=== PATIENT | female | born 1990 | race African-American/Black ===

== ENCOUNTER 2019-03-14 22:20 | Inpatient (IN) | payer OTHER ==
[2019-03-14 22:59] VITALS: BMI 27.3
--- NOTE | 2019-03-15 00:12 | HP ---
CIWA Score Nausea/Vomitin-No Nausea/No Vomiting Muscle Tremors: 4-Moderate,w/Arms Extend Anxiety: 3 Agitation: 1-Slight > Activity Paroxysmal Sweats: 3 (Increased facial moisture) Orientation: 3-Disoriented Date>2 days Tacttile Disturbances: 0-None Auditory Disturbances: 0-None Visual Disturbances: 0-None Headache: 0-None Present CIWA-Ar Total Score: 14 - Admission Criteria OASAS Guidelines: Admission for Medically Managed Detox: Requires at least one of the followin. CIWA greater than 12 2. Seizures within the past 24 hours 3. Delirium tremens within the past 24 hours 4. Hallucinations within the past 24 hours 5. Acute intervention needed for co occurring medical disorder 6. Acute intervention needed for co occurring psychiatric disorder 7. Severe withdrawal that cannot be handled at a lower level of care (continued vomiting, continued diarrhea, abnormal vital signs) requiring intravenous medication and/or fluids 8. Patient presents the following: CIWA greater than 12 Admission Criteria Met: Admission criteria met Admission ROS [facility] Chief Complaint: I'm sick and tired from alcohol and crack. Allergies/Adverse Reactions: Allergies Allergy/AdvReac Type Severity Reaction Status Date / Time No Known Allergies Allergy Verified 03/14/19 22:47 History of Present Illness: This is the first [facility] visit for this 29 yo who presents w/ alcohol withdrawal and poly substance use disorder. UTox: AZALIA/THC HCG: Neg AISSATOU: 0.0 Alcohol use began at age 13. States drinks 1/2 vodka daily since age 13. Crack/cocaine at age 16. Daily. Marijuana use began at age 13. Nicotine use began at age 13. Smokes 1/2 PPD. Longest length of sobriety 1 week. PMHx: Hx seizures - on Keppra - last took yesterday. Disoriented: States it's February 2019. Knows president and knows is in [place]. MHHx: Denies depression. Denies thoughts of harming self or others. Patient admits has gotten prescriptions in past for Suboxone. Denies heroin, Suboxone or opioid use. Patient Name: Bev Cast Date: 1990 Address: [address] [place] [address] Sex: Female Rx Written Rx Dispensed Drug Quantity Days Supply Prescriber Name 01/02/2019 01/02/2019 buprenorphine-naloxone 8-2 mg sl film 30 10 Bhaskar Mcfarlane MD Patient Name: Bev Cast Date: 1990 Address: [address] [place] [address] Sex: Female Rx Written Rx Dispensed Drug Quantity Days Supply Prescriber Name 08/09/2018 08/09/2018 chlordiazepoxide 10 mg capsule 6 6 Stephanie Kendall Patient Name: Bev Cast Date: 1990 Address: [address] [address] Sex: Female Rx Written Rx Dispensed Drug Quantity Days Supply Prescriber Name 06/29/2018 07/01/2018 suboxone 8 mg-2 mg sl film 30 10 Ольга Stuart MD 06/30/2018 07/01/2018 chlordiazepoxide 10 mg capsule 8 3 Ольга Stuart MD 06/30/2018 06/30/2018 chlordiazepoxide 10 mg capsule 20 7 Ольга Stuart MD Exam Limitations: No Limitations - Ebola screening Have you traveled outside of the country in the last 21 days: No (N) Have you had contact with anyone from an Ebola affected area: No Have you been sick,other than usual withdrawal symptoms: No Do you have a fever: No - Review of Systems Constitutional: Chills EENT: reports: No Symptoms Reported Respiratory: reports: No Symptoms reported Cardiac: reports: No Symptoms Reported GI: reports: No Symptoms Reported : reports: No Symptoms Reported Musculoskeletal: reports: No Symptoms Reported Integumentary: reports: No Symptoms Reported Neuro: reports: Headache, Tremors Endocrine: reports: No Symptoms Reported Hematology: reports: No Symptoms Reported Psychiatric: reports: Agitated, Disorientated Patient History - Reproductive History Patient is a Female of Child Bearing Age (11 -55 yrs old): Yes Last Menstrual Period: 03/08/19 Patient : No - Smoking Cessation Smoking history: Current every day smoker Have you smoked in the past 12 months: Yes Aproximately how many cigarettes per day: 10 Hx Chewing Tobacco Use: No Initiated information on smoking cessation: Yes 'Breaking Loose' booklet given: 03/15/19 - Substance & Tx. History Hx Alcohol Use: Yes Hx Substance Use: Yes Substance Use Type: Alcohol, Cocaine, Marijuana Hx Substance Use Treatment: Yes (rehab, long-term) - Substances abused Alcohol Substance route: Oral Frequency: Daily Amount used: about half of a liter of vodka/ 6 to 12 cans of beer. Age of first use: 13 Date of last use: 03/14/19 Crack Substance route: Smoking Frequency: Daily Amount used: 50 dollars Age of first use: 16 Date of last use: 03/14/19 Marijuana/Hashish Substance route: Smoking Frequency: Daily Amount used: 20 dollars Age of first use: 13 Date of last use: 03/12/19 Admission Physical Exam [facility] - Vital Signs Vital Signs: Vital Signs - 24 hr 03/14/19 03/14/19 22:46 23:13 Temperature 97.7 F 97.7 F Pulse Rate 95 H 95 H Respiratory 16 16 Rate Blood Pressure 129/79 129/79 - Physical General Appearance: Yes: Nourished, Mild Distress, Tremorous (Tremors w/ arms extended), Sweating (Increased facial moisture), Anxious HEENTM: Yes: EOMI, Hearing grossly Normal, Normal Voice, GENEVA, Pharynx Normal Respiratory: Yes: Lungs Clear, Normal Breath Sounds, No Respiratory Distress Neck: Yes: No masses,lesions,Nodules, Supple Breast: Yes: Breast Exam Deferred Cardiology: Yes: Regular Rhythm, Regular Rate, S1, S2 Abdominal: Yes: Non Tender, Flat, Soft, Increased Bowel Sounds Genitourinary: Yes: Within Normal Limits Back: Yes: Normal Inspection Musculoskeletal: Yes: full range of Motion, Gait Steady Extremities: Yes: Tremors (Tremors w/ arms extended) Neurological: Yes: 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 II-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 NML intact, Alert, Motor Strength 5/5, Disoriented (Unsure of month or day of week.) Integumentary: Yes: Normal Color, Warm Lymphatic: Yes: Within Normal Limits - Diagnostic (1) Alcohol dependence with uncomplicated withdrawal Current Visit: Yes Status: Acute (2) History of seizures Current Visit: Yes Status: Chronic (3) Cocaine dependence, uncomplicated Current Visit: Yes Status: Chronic (4) Cannabis dependence, uncomplicated Current Visit: Yes Status: Chronic (5) Nicotine dependence, uncomplicated Current Visit: Yes Status: Chronic Qualifiers: Nicotine product type: cigarettes Qualified Code(s): F17.210 - Nicotine dependence, cigarettes, uncomplicated Cleared for Admission [facility] - Detox or Rehab [facility] Level of Care: Medically Managed Detox Regimen/Protocol: Librium Claeared for Rehab Admission: No Breathalyzer - Breathalyzer Breathalyzer: 0 Urine Drug Screen - Test Device Lot number: [id number] Expiration date: 12/07/20 - Control Is test valid?: Yes - Results Drug screen NEGATIVE: No Urine drug screen results: THC-Marijuana, AZALIA-Cocaine Inpatient Rehab Admission - Rehab Decision to Admit Inpatient rehab admission?: No
[2019-03-15] MEDS ORDERED: ACETAMINOPHEN 325 MG TABLET (FP) PO PRN ×2 (00:52)
[2019-03-15] MEDS ORDERED: MELATONIN 5 MG TABLETS PO PRN (00:52)
[2019-03-15] MEDS ORDERED: chlordiazePOXIDE HCL 10 MG CAPSULE PO PRN (00:52)
[2019-03-15] MEDS ORDERED: NICOTINE POLACRILEX 2 MG GUM BUC PRN (00:52)
[2019-03-15] MEDS ORDERED: MENTHOL/PHENOL 1 EACH UD MM PRN (00:52)
[2019-03-15] MEDS ORDERED: MAGNESIUM CITRATE 300 ML BOTTLE PO PRN (00:52)
[2019-03-15] MEDS ORDERED: IBUPROFEN 400 MG TABLET (FP) PO PRN (00:52)
[2019-03-15] MEDS ORDERED: MAG HYDROX/AL HYDROX/SIMETH 30 ML UNIT-DOSE CUP PO PRN (00:52)
[2019-03-15] MEDS ORDERED: MAGNESIUM HYDROX 2400MG/30ML ORAL SUSPENSION 30 ML CUP PO PRN (00:52)
[2019-03-15] MEDS: chlordiazePOXIDE HCL 25 MG CAPSULE PO SCH ×3 (05:18→22:06)
[2019-03-15] MEDS: PRENATAL VITAMINS W/ FOLIC ACID TABLET (FP) PO SCH (10:22)
[2019-03-15] MEDS: levETIRAcetam 500 MG TABLET (FP) PO SCH ×2 (10:22→22:06)
[2019-03-15] MEDS: NICOTINE 14 MG/24 HOURS TOPICAL PATCH TD SCH (10:23)
[2019-03-15 12:06] LABS: HEMATOCRIT 35.3 % (32.4-45.2); HEMOGLOBIN 11.3 GM/dL (10.7-15.3); MCHC 32.1 g/dl (32.0-36.0); MEAN CELL VOLUME 84.3 fl (80-96); MEAN PLT VOLUME 10.3 fl (7.5-11.1); RBC 4.19 M/mm3 (3.60-5.2); RDW 14.1 % (11.6-15.6); WHITE BLOOD COUNT 15.1 K/mm3 (4.0-10.0)
[2019-03-15 12:31] LABS: ALBUMIN 3.2 g/dl (3.4-5.0); BILIRUBIN,TOTAL 0.9 mg/dL (0.2-1); BLOOD UREA NITROGEN 11.8 mg/dL (7-18); CALCIUM 8.8 mg/dL (8.5-10.1); CREATININE 0.8 mg/dL (0.55-1.3); POTASSIUM 3.6 mmol/L (3.5-5.1); TOT PROT 6.2 g/dl (6.4-8.2)
--- NOTE | 2019-03-15 14:49 | PN ---
[facility] CIWA - CIWA Score Nausea/Vomitin-No Nausea/No Vomiting Muscle Tremors: 2 Anxiety: 3 Agitation: 3 Paroxysmal Sweats: 2 Orientation: 0-Oriented Tacttile Disturbances: 1-Very Mild Itch/Numbness Auditory Disturbances: 0-None Visual Disturbances: 2-Mild Sensitivity Headache: 0-None Present CIWA-Ar Total Score: 13 S Progress Note (SOAP) Subjective: Sweating, Anxious, Tremors, Interrupted Sleep. Objective: PATIENT A & O X 3, OBSERVED AMBULATING ON UNIT UNASSISTED. IN NO ACUTE DISTRESS. PATIENT AFEBRILE. 03/15/19 14:45 Vital Signs Temperature 97.4 F L 03/15/19 13:39 Pulse Rate 89 03/15/19 13:39 Respiratory Rate 18 03/15/19 13:39 Blood Pressure 120/82 03/15/19 13:39 O2 Sat by Pulse Oximetry (%) Laboratory Tests 03/14/19 03/15/19 03/15/19 23:15 09:00 09:00 WBC 15.1 H RBC 4.19 Hgb 11.3 Hct 35.3 MCV 84.3 MCH 27.0 MCHC 32.1 RDW 14.1 Plt Count MPV 10.3 Platelet Comment Mod plt clumping Sodium 142 Potassium 3.6 Chloride 102 Carbon Dioxide 30 Anion Gap 11 BUN 11.8 Creatinine 0.8 Est GFR (CKD-EPI)AfAm 115.47 Est GFR (CKD-EPI)NonAf 99.63 Random Glucose 97 Calcium 8.8 Total Bilirubin 0.9 AST 21 ALT 25 Alkaline Phosphatase 93 Total Protein 6.2 L Albumin 3.2 L POC Urine HCG, Qual Negative HIV 1&2 Antibody Screen HIV P24 Antigen 03/15/19 09:00 WBC RBC Hgb Hct MCV MCH MCHC RDW Plt Count MPV Platelet Comment Sodium Potassium Chloride Carbon Dioxide Anion Gap BUN Creatinine Est GFR (CKD-EPI)AfAm Est GFR (CKD-EPI)NonAf Random Glucose Calcium Total Bilirubin AST ALT Alkaline Phosphatase Total Protein Albumin POC Urine HCG, Qual HIV 1&2 Antibody Screen Cancelled HIV P24 Antigen Cancelled LABS NOTED. RESULTS OF DETOX ADMISSION RPR, H.I.V. AB, TB, AND LEVETIRACETAM LEVELS PENDING. PATIENT DENIES CHEST PAIN, COUGH, SOB. PATIENT REPORT RECENT HISTORY OF A "COLD." PATIENT DENIES ANY UNUSUAL URINARY COMPLAINTS (BURNING, PAIN, FREQUENCY, URGENCY , HESITANCY, VISUALIZATION OF BLOOD IN URINE). 03/15/19 14:47 Assessment: 03/15/19 14:47 WITHDRAWAL SYMPTOMS. LEUKOCYTOSIS. Plan: CONTINUE DETOX. INCREASE DAILY PO WATER INTAKE. REPEAT CBC ORDERED FRO TOMORROW AM DUE TO ELEVATED WBC LEVEL NOTED ON DETOX ADMISSION LABORATORY ASSESSMENT. UA ORDERED TO SEE IF ANY URINARY ABNORMALITIES PRESENT.
[2019-03-15] MEDS ORDERED: THIAMINE HCL 100 MG TABLET (FP) PO SCH (22:00)
[2019-03-15] MEDS: METHOCARBAMOL 500 MG TABLET PO PRN (22:31)
[2019-03-15 22:52] LABS: PH,URINE 6.5 (5.0-8.0); URINE APPEARANCE CLEAR; URINE BILIRUBIN NEGATIVE (NEGATIVE); URINE COLOR YELLOW; URINE GLUCOSE (UA) NEGATIVE (NEGATIVE); URINE KETONE NEGATIVE (NEGATIVE); URINE LEUK ESTERASE NEGATIVE (NEGATIVE); URINE NITRITE NEGATIVE (NEGATIVE); URINE PROTEIN NEGATIVE (NEGATIVE)
[2019-03-16] MEDS ORDERED: chlordiazePOXIDE 5 MG CAPSULE PO SCH (05:00)
[2019-03-16] MEDS: METHOCARBAMOL 500 MG TABLET PO PRN (05:47)
[2019-03-16 09:04] VITALS: BP 104/66; PULSE 87; TEMP 97.2
[2019-03-16] MEDS: levETIRAcetam 500 MG TABLET (FP) PO SCH (10:31)
[2019-03-16] MEDS: PRENATAL VITAMINS W/ FOLIC ACID TABLET (FP) PO SCH (10:31)
[2019-03-16] MEDS: NICOTINE 14 MG/24 HOURS TOPICAL PATCH TD SCH (10:33)
[2019-03-16 12:02] LABS: BASO % 0.5 % (0-2.0); EOS % 1.6 % (0-4.5); HEMATOCRIT 32.6 % (32.4-45.2); HEMOGLOBIN 10.4 GM/dL (10.7-15.3); LYMPH % 20.2 % (8-40); MCH 26.7 pg (25.7-33.7); MCHC 31.7 g/dl (32.0-36.0); MEAN CELL VOLUME 84.1 fl (80-96); MEAN PLT VOLUME 9.1 fl (7.5-11.1); MONO % 8.4 % (3.8-10.2); NEUT % 69.3 % (42.8-82.8); PLATELET COUNT 280 K/MM3 (134-434); RBC 3.88 M/mm3 (3.60-5.2); WHITE BLOOD COUNT 12.7 K/mm3 (4.0-10.0)
[2019-03-16 12:53] LABS: ANISOCYTOSIS 0; MACROCYTOSIS 0; PLATELET ESTIMATE NORMAL
--- NOTE | 2019-03-16 12:56 | DS ---
[facility] Detox Discharge Summary Admission Date: 03/15/19 Discharge Date: 03/16/19 - History Present History: Alcohol Dependence, Cannabis Dependence, Cocaine Dependence Additional Comments: PATIENT REPORTS THAT SHE HAS PERSONAL MATTERS TO ATTEND TO AND THAT SHE DOES NOT WISH TO REMAIN TO COMPLETE DETOX REGIMEN. RISKS OF LEAVING DETOX UNIT AGAINST MEDICAL ADVICE AND PRIOR TO COMPLETION OF DETOX REGIMEN EXPLAINED TO PATIENT. PATIENT ADVISED TO TRY TO WAIT FOR RESULTS OF REPEAT CBC DRAWN EARLIER IN AM (PATIENT HAD ELEVATED WBC LEVEL YESTERDAY - SEE C.I.W.A. / S.O.A.P. NOTE FOR 03/15/2019). HOWEVER, PATIENT DECLINED TO DO SO AND ELECTED TO LEAVE DETOX UNIT IMMEDIATELY. RESULT OF REPEAT CBC LATER NOTED TO SHOW WBC LEVEL (12.7) THAT WAS REDUCED IN COMPARISON TO ADMISSION CBC LEVEL (15.1). HOWEVER, PATIENT LEFT DETOX UNIT AGAINST MEDICAL ADVICE PRIOR TO TIME IN WHICH RESULTS OF REPEAT CBC WERE AVAILABLE. PATIENT WAS ADVISED TO FOLLOW-UP WITH SENIOR INTERACTIVE DEVELOPER FOR FURTHER MEDICAL EVALUATION FOR ELEVATED WBC LEVEL NOTED ON DETOX ADMISSION LABORATORY ASSESSMENT. RESULTS OF UA ALSO NOTED (NO SIGNIFICANT ABNORMALITIES NOTED). PATIENT ALSO ADVISED TO GO IMMEDIATELY TO NEAREST ER SHOULD ANY INTOLERABLE WITHDRAWAL / DETOX SYMPTOMS DEVELOP AT ANY TIME. PATIENT VERBALIZED UNDERSTANDING OF ALL INFORMATION / RECOMMENDATIONS PRESENTED TO HER PRIOR TO DEPARTURE FROM DETOX UNIT. COPIES OF RESULTS OF ALL LABS DRAWN WHILE AT TIME OF ADMISSION TO DETOX UNIT GIVEN TO PATIENT AT TIME IN WHICH SHE LEFT DETOX UNIT. Pertinent Past History: History Of Seizures, Nicotine Dependence, Leukocytosis. - Physical Exam Results Vital Signs: Vital Signs Temperature 97.2 F L 03/16/19 09:04 Pulse Rate 87 03/16/19 09:04 Respiratory Rate 18 03/16/19 09:04 Blood Pressure 104/66 03/16/19 09:04 O2 Sat by Pulse Oximetry (%) Pertinent Admission Physical Exam Findings: WITHDRAWAL SYMPTOMS. Laboratory Tests 03/14/19 03/15/19 03/15/19 23:15 09:00 09:00 WBC 15.1 H RBC 4.19 Hgb 11.3 Hct 35.3 MCV 84.3 MCH 27.0 MCHC 32.1 RDW 14.1 Plt Count MPV 10.3 Absolute Neuts (auto) Neutrophils % Neutrophils % (Manual) Band Neutrophils % Lymphocytes % Lymphocytes % (Manual) Monocytes % Monocytes % (Manual) Eosinophils % Eosinophils % (Manual) Basophils % Basophils % (Manual) Myelocytes % (Man) Promyelocytes % (Man) Blast Cells % (Manual) Nucleated RBC % Metamyelocytes Hypochromia Platelet Estimate Platelet Comment Mod plt clumping Polychromasia Poikilocytosis Anisocytosis Microcytosis Macrocytosis Sodium 142 Potassium 3.6 Chloride 102 Carbon Dioxide 30 Anion Gap 11 BUN 11.8 Creatinine 0.8 Est GFR (CKD-EPI)AfAm 115.47 Est GFR (CKD-EPI)NonAf 99.63 Random Glucose 97 Calcium 8.8 Total Bilirubin 0.9 AST 21 ALT 25 Alkaline Phosphatase 93 Total Protein 6.2 L Albumin 3.2 L Urine Color Urine Appearance Urine pH Ur Specific [place] Urine Protein Urine Glucose (UA) Urine Ketones Urine Blood Urine Nitrite Urine Bilirubin Urine Urobilinogen Ur Leukocyte Esterase POC Urine HCG, Qual Negative RPR Titer HIV 1&2 Ag/Ab, 4th Gen HIV 1&2 Antibody Screen HIV P24 Antigen 03/15/19 03/15/19 03/15/19 09:00 09:00 10:00 WBC RBC Hgb Hct MCV MCH MCHC RDW Plt Count MPV Absolute Neuts (auto) Neutrophils % Neutrophils % (Manual) Band Neutrophils % Lymphocytes % Lymphocytes % (Manual) Monocytes % Monocytes % (Manual) Eosinophils % Eosinophils % (Manual) Basophils % Basophils % (Manual) Myelocytes % (Man) Promyelocytes % (Man) Blast Cells % (Manual) Nucleated RBC % Metamyelocytes Hypochromia Platelet Estimate Platelet Comment Polychromasia Poikilocytosis Anisocytosis Microcytosis Macrocytosis Sodium Potassium Chloride Carbon Dioxide Anion Gap BUN Creatinine Est GFR (CKD-EPI)AfAm Est GFR (CKD-EPI)NonAf Random Glucose Calcium Total Bilirubin AST ALT Alkaline Phosphatase Total Protein Albumin Urine Color Urine Appearance Urine pH Ur Specific [place] Urine Protein Urine Glucose (UA) Urine Ketones Urine Blood Urine Nitrite Urine Bilirubin Urine Urobilinogen Ur Leukocyte Esterase POC Urine HCG, Qual RPR Titer Nonreactive HIV 1&2 Ag/Ab, 4th Gen Non reactive HIV 1&2 Antibody Screen Cancelled HIV P24 Antigen Cancelled 03/15/19 03/16/19 15:42 08:03 WBC 12.7 H RBC 3.88 Hgb 10.4 L Hct 32.6 MCV 84.1 MCH 26.7 MCHC 31.7 L RDW 14.0 Plt Count 280 MPV 9.1 D Absolute Neuts (auto) 8.8 H Neutrophils % 69.3 Neutrophils % (Manual) 69.0 Band Neutrophils % 0.0 Lymphocytes % 20.2 Lymphocytes % (Manual) 22.0 Monocytes % 8.4 Monocytes % (Manual) 7 Eosinophils % 1.6 Eosinophils % (Manual) 1.0 Basophils % 0.5 Basophils % (Manual) 0.0 Myelocytes % (Man) 0 Promyelocytes % (Man) 0 Blast Cells % (Manual) 0 Nucleated RBC % 0 Metamyelocytes 0 Hypochromia 0 Platelet Estimate Normal Platelet Comment Polychromasia 0 Poikilocytosis 0 Anisocytosis 0 Microcytosis 0 Macrocytosis 0 Sodium Potassium Chloride Carbon Dioxide Anion Gap BUN Creatinine Est GFR (CKD-EPI)AfAm Est GFR (CKD-EPI)NonAf Random Glucose Calcium Total Bilirubin AST ALT Alkaline Phosphatase Total Protein Albumin Urine Color Yellow Urine Appearance Clear Urine pH 6.5 Ur Specific [place] 1.006 L Urine Protein Negative Urine Glucose (UA) Negative Urine Ketones Negative Urine Blood Negative Urine Nitrite Negative Urine Bilirubin Negative Urine Urobilinogen 1.0 Ur Leukocyte Esterase Negative POC Urine HCG, Qual RPR Titer HIV 1&2 Ag/Ab, 4th Gen HIV 1&2 Antibody Screen HIV P24 Antigen LABS NOTED. - Medication Discharge Medications: Ambulatory Orders levETIRAcetam [Keppra -] 500 mg PO BID 03/14/19 - Diagnosis (1) Alcohol dependence with uncomplicated withdrawal Status: Acute (2) Leukocytosis Status: Acute Qualifiers: Leukocytosis type: unspecified Qualified Code(s): D72.829 - Elevated white blood cell count, unspecified (3) Cannabis dependence, uncomplicated Status: Chronic (4) Cocaine dependence, uncomplicated Status: Chronic (5) History of seizures Status: Chronic (6) Nicotine dependence, uncomplicated Status: Chronic Qualifiers: Nicotine product type: cigarettes Qualified Code(s): F17.210 - Nicotine dependence, cigarettes, uncomplicated - AMA Did Patient Leave Against Medical Advice: Yes (PT. HAD PERSONAL ISSUES AND DID NOT WISH TO COMPLETE DETOX.) S CIWA - CIWA Score Nausea/Vomitin-No Nausea/No Vomiting Muscle Tremors: 2 Anxiety: 3 Agitation: 2 Paroxysmal Sweats: 2 Orientation: 0-Oriented Tacttile Disturbances: 1-Very Mild Itch/Numbness Auditory Disturbances: 0-None Visual Disturbances: 0-None Headache: 0-None Present CIWA-Ar Total Score: 10
[2019-03-17] MEDS ORDERED: chlordiazePOXIDE HCL 10 MG CAPSULE PO PRN
[2019-03-17] MEDS ORDERED: chlordiazePOXIDE HCL 10 MG CAPSULE PO SCH (05:00)
[2019-03-18] MEDS ORDERED: chlordiazePOXIDE HCL 10 MG CAPSULE PO ONE (05:00)
== END 2019-03-16 11:33 | disposition left against medical advice (07) | DRG 770 ==
LOC: YASAS 22:20 → Y3N 03-15 00:57
PROVIDERS: ADMIT Surgery; ATTEND Surgery
PROC: HZ2ZZZZ Detoxification Services for Substance Abuse Treatment (ICD-10-PCS; principal; 2019-03-15)
DX: F10.230 Alcohol dependence with withdrawal, uncomplicated (principal); F14.20 Cocaine dependence, uncomplicated; F12.20 Cannabis dependence, uncomplicated; F17.210 Nicotine dependence, cigarettes, uncomplicated; D72.829 Elevated white blood cell count, unspecified; Z86.69 Personal history of other diseases of the nervous system and sense organs
CPT/HCPCS: 36415; 80053; 80177; 81003; 81025; 85025; 85027; 86480; 86593; 87389